=== PATIENT | male | born 1955 | race Caucasian/White ===

== ENCOUNTER 2024-07-30 09:27 | Emergency (ER) | payer OTHER ==
[~2024-07-30] VITALS: Ht 177.8 cm; Wt 115.2 kg
[2024-07-30] MEDS ORDERED: XARE20MG PO (09:54)
== END 2024-07-30 11:21 | disposition home or self-care (01) ==
LOC: ED 09:27
DX: S01.01XA Laceration without foreign body of scalp, initial encounter (principal); Z79.899 Other long term (current) drug therapy; W01.0XXA Fall on same level from slipping, tripping and stumbling without subsequent striking against object, initial encounter; Y93.89 Activity, other specified; Y92.89 Other specified places as the place of occurrence of the external cause; Y99.0 Civilian activity done for income or pay